=== PATIENT | male | born 1980 | race Caucasian/White ===

== ENCOUNTER 2021-06-29 15:50 | Emergency (ER) | payer BC, SELFPAY ==
[2021-06-29] MEDS ORDERED: MORPHINE 4 MG/ML SYR ONE (16:23)
[2021-06-29] MEDS ORDERED: ONDANSETRON 4 MG/2 ML VIAL ONE (16:23)
--- NOTE | 2021-06-29 16:31 | RAD REPORT ---
EXAM DESCRIPTION: RAD - Tib Fib Right - 06/29/2021 4:15 pm CLINICAL HISTORY: PAIN, blunt force trauma COMPARISON: Foot Right 3 View dated 06/29/2021 FINDINGS: No fracture is identified. There is no dislocation or periosteal reaction noted. No acute or suspicious bony finding. No foreign body or other soft tissue abnormality. IMPRESSION: Negative right tibia & fibula examination.
--- NOTE | 2021-06-29 16:32 | RAD REPORT ---
EXAM DESCRIPTION: RAD - Foot Right 3 View - 06/29/2021 4:15 pm CLINICAL HISTORY: PAIN, blunt force trauma COMPARISON: No comparisons FINDINGS: No fracture, dislocation or periosteal reaction. No acute bone or joint finding. No air or foreign body in the soft tissues. IMPRESSION: Negative right foot examination.
--- NOTE | 2021-06-29 17:39 | ER ---
Nurse's Notes [facility] Name: Maury Meraz III Age: 40 yrs Sex: Male : 1980 Arrival Date: 06/29/2021 Time: 15:52 Bed 8 Private MD: Diagnosis: Contusion of right lower leg;Contusion of right foot Presentation: 06/29 15:53 Chief complaint: EMS states: "pt was cutting down a tree and it fell and came down on jd3 his right lower leg and foot. he was trapped for about 30 min. obvious deformity to lower right leg with pain to right lower leg and right foot.". Coronavirus screen: At this time, the client does not indicate any symptoms associated with coronavirus-19. Ebola Screen: Patient negative for fever greater than or equal to 101.5 degrees Fahrenheit, and additional compatible Ebola Virus Disease symptoms. Initial Sepsis Screen: Does the patient meet any 2 criteria? No. Patient's initial sepsis screen is negative. Does the patient have a suspected source of infection? No. Patient's initial sepsis screen is negative. Risk Assessment: Do you want to hurt yourself or someone else? Patient reports no desire to harm self or others. Onset of symptoms was June 29, 2021. 15:53 Method Of Arrival: EMS: [facility] j 15:53 Acuity: DAVE 3 jd3 15:57 Care prior to arrival: Placed on backboard. Mechanism of Injury: Crush injury from tree jd3 that had unknown weight. Extrication was required. Patient was trapped for approximately 30 minutes. Trauma event details: Injury occurred in the [facility], Injury occurred: at home. Injury occurred: June 29, 2021. Trauma Activation: Alert Physician: ED Physician; Name: MD. Max/ Dougie WHEATLEY; Notified At: 15:59; Arrived At: 15:59 Physician: General Surgeon; Name: ; Notified At: 15:59; Arrived At: Physician: Radiology; Name: x-ray tech, biosolids management technician; Notified At: 15:59; Arrived At: 15:59 Physician: Respiratory; Name: ; Notified At: 15:59; Arrived At: Physician: Danitza; Name: ; Notified At: 15:59; Arrived At: Historical: - Allergies: 15:56 No Known Allergies; jd3 - Home Meds: 15:56 None [Active]; jd3 - PMHx: 15:56 None; jd3 - PSHx: 15:56 None; jd3 - Immunization history:: Adult Immunizations up to date, Last tetanus immunization: < 5 years ago. - Social history:: Smoking status: Patient reports the use of cigarette tobacco products, smokes one pack cigarettes per day. Patient uses street drugs, Methamphetamine (Meth) Patient/guardian denies using alcohol. - Immunization history: Last tetanus immunization: - up to date. < 5 years ago. Screenin:03 Abuse screen: Denies threats or abuse. Tuberculosis screening: No symptoms or risk jd3 factors identified. 16:04 Nutritional screening: No deficits noted. Fall Risk IV access (20 points). Ambulatory jd3 Aid- None/Bed Rest/Nurse Assist (0 pts). Gait- Normal/Bed Rest/Wheelchair (0 pts) Mental Status- Oriented to own ability (0 pts). Total Goff Fall Scale indicates No Risk (0-24 pts). Primary Survey: 15:59 NO uncontrolled hemorrhage observed. A: The patient is alert. Airway: patent, No jd3 supplemental oxygen in use on arrival. Breathing/Chest: Respiratory pattern: regular, Respiratory effort: spontaneous, unlabored, Chest inspection: symmetrical rise and fall of the chest. Circulation: Pulses: palpable right radial artery, right dorsalis pedis artery, left radial artery and left dorsalis pedis artery. Skin color: pink, Skin temperature: warm. Disability Alert. Exposure/Environment: All clothing and personal items were removed. Forensic evidence collection is not deemed to be indicated at this time. Items placed in patient belonging bag. There is no evidence of uncontrolled external bleeding. Obvious injury(ies) are noted at this time: bruising noted to right lower leg and foot A warming method has been applied: A warm blanket has been provided to the patient. 16:49 Reassessment Airway Airway Patent Breathing/Chest Respiratory pattern Regular jd3 Respiratory effort Spontaneous Unlabored Chest inspection Symmetrical Circulation Pulses Palpable Color [place] Temperature Warm Disability Alert. Secondary Survey: 16:02 HEENT: No deficits noted. Gastrointestinal: No deficits noted. : No signs and/or jd3 symptoms were reported regarding the genitourinary system. Musculoskeletal: Circulation, motion, and sensation intact. Range of motion: limited in right knee and right ankle. Assessment: 16:01 General: Appears uncomfortable, Behavior is cooperative, appropriate for age. Pain: jd3 Complains of pain in right foot and right leg Quality of pain is described as sharp, shooting, stabbing. Neuro: Level of Consciousness is awake, alert, obeys commands, Oriented to person, place, time, situation, Denies dizziness, numbness headache photophobia diplopia, denies LOC or hit to head. EENT: No signs and/or symptoms were reported regarding the EENT system. Cardiovascular: Capillary refill < 3 seconds Patient's skin is warm and dry. Respiratory: Airway is patent Respiratory effort is even, unlabored, Respiratory pattern is regular, symmetrical, Denies cough, shortness of breath. GI: No signs and/or symptoms were reported involving the gastrointestinal system. : No signs and/or symptoms were reported regarding the genitourinary system. Derm: Skin is intact, Skin is dry, Skin is normal, Skin temperature is warm Bruising that is on right foot and right smiley. Musculoskeletal: Circulation, motion, and sensation intact. Range of motion: limited in right ankle. 16:51 Reassessment: Patient and/or family updated on plan of care and expected duration. Pain jd3 level reassessed. Patient is alert, oriented x 3, equal unlabored respirations, skin warm/dry/pink. Patient states feeling better. 18:12 Reassessment: Patient appears in no apparent distress at this time. Patient and/or jd3 family updated on plan of care and expected duration. Pain level reassessed. Patient is alert, oriented x 3, equal unlabored respirations, skin warm/dry/pink. Patient states feeling better. Derm: Skin is intact, Skin is dry, Skin is normal, Skin temperature is warm Bruising that is on right foot and right smiley. Musculoskeletal: Circulation, motion, and sensation intact. Range of motion: intact in all extremities. Vital Signs: 15:56 BP 134 / 97; Pulse 87; Resp 19 S; Temp 98.7(O); Pulse Ox 99% on R/A; Weight 68.04 kg jd3 (R); Height 5 ft. 8 in. (172.72 cm) (R); Pain 10/10; 16:51 BP 126 / 92; Pulse 81; Resp 16 S; Pulse Ox 98% on R/A; jd3 18:13 BP 126 / 89; Pulse 77; Resp 16 S; Pulse Ox 100% on R/A; jd3 15:56 Body Mass Index 22.81 (68.04 kg, 172.72 cm) jd3 [place] Coma Score: 16:03 Eye Response: spontaneous(4). Verbal Response: oriented(5). Motor Response: obeys jd3 commands(6). Total: 15. 18:13 Eye Response: spontaneous(4). Verbal Response: oriented(5). Motor Response: obeys jd3 commands(6). Total: 15. Trauma Score (Adult): 16:03 Eye Response: spontaneous(1); Verbal Response: oriented(1); Motor Response: obeys jd3 commands(2); Systolic BP: > 89 mm Hg(4); Respiratory Rate: 10 to 29 per min(4); [place] Score: 15; Trauma Score: 12 18:13 Eye Response: spontaneous(1); Verbal Response: oriented(1); Motor Response: obeys jd3 commands(2); Systolic BP: > 89 mm Hg(4); Respiratory Rate: 10 to 29 per min(4); [place] Score: 15; Trauma Score: 12 ED Course: 15:52 Patient arrived in ED. eb 15:52 Skip Ashraf RN is Primary Nurse. jd3 15:53 Dougie Cramer NP is PHCP. pm1 15:53 Escobar Max MD is Attending Physician. pm1 15:55 Triage completed. jd3 15:57 Arm band placed on. jd3 15:57 Inserted saline lock: 18 gauge in right antecubital area, using aseptic technique. jd3 Blood collected. Patient maintains SpO2 saturation greater than 95% on room air. 16:03 Patient has correct armband on for positive identification. Bed in low position. Call jd3 light in reach. Side rails up X2. 16:04 Thermoregulation: warm blanket given to patient. jd3 16:15 Tib Fib Right XRAY In Process Unspecified. EDMS 16:15 Foot Right 3 View XRAY In Process Unspecified. EDMS 18:12 No provider procedures requiring assistance completed. IV discontinued, intact, jd3 bleeding controlled, No redness/swelling at site. Pressure dressing applied. Administered Medications: 16:04 Drug: morphine 4 mg Route: IVP; Site: left antecubital; jd3 17:00 Follow up: Response: No adverse reaction; RASS: Alert and Calm (0) jd3 16:04 Drug: Zofran (Ondansetron) 4 mg Route: IVP; Site: left antecubital; jd3 17:00 Follow up: Response: No adverse reaction jd3 18:11 Drug: Ketorolac 30 mg Route: IVP; Site: left antecubital; jd3 18:12 Follow up: Response: Medication administered at discharge. jd3 Intake: 18:13 PO: 0ml; Total: 0ml. jd3 Output: 18:13 Urine: 0ml; Total: 0ml. jd3 Outcome: 17:38 Discharge ordered by MD. pm1 18:12 Discharged to home ambulatory, with crutches, with family. jd3 18:12 Condition: stable 18:12 Discharge instructions given to patient, family, Instructed on discharge instructions, follow up and referral plans. medication usage, Demonstrated understanding of instructions, follow-up care, medications, Prescriptions given X 2. 18:14 Patient's length of stay in the Emergency Department was greater than 2 hours. waiting jd3 for results and dispositionPatient's length of stay extended due to 18:14 Patient left the ED. jd3 Signatures: Dispatcher [employer] EDMS Dougie Cramer NP WELT ROUGHER pm1 Skip Ashraf RN RN jd3 Vera Garza Corrections: (The following items were deleted from the chart) 16:51 15:59 Exposure/Environment: All clothing and personal items were removed. Forensic jd3 evidence collection is not deemed to be indicated at this time. Items placed in patient belonging bag. There is no evidence of uncontrolled external bleeding. Obvious injury(ies) are noted at this time: deformity noted to right lower leg. A warming method has been applied: A warm blanket has been provided to the patient. jd3 18:14 18:14 Patient's length of stay was not longer than 2 hours. jd3 jd3 18:14 18:14 Patient's length of stay was not longer than 2 hours. jd3 jd3
--- NOTE | 2021-06-29 17:39 | EDPHYS ---
Physician Documentation [facility] Name: Maury Meraz III Age: 40 yrs Sex: Male : 1980 Arrival Date: 06/29/2021 Time: 15:52 Bed 8 Private MD: ED Physician Escobar Max HPI: 06/29 16:26 This 40 yrs old Male presents to ER via EMS with complaints of Right leg pm1 injury. 16:26 The patient presents with a crush injury, Tree. The complaints affect the right smiley pm1 and dorsum of right foot. Context: The problem was sustained at work, resulted from a crush injury, Large tree, the patient is not able to bear weight, Problem is a result from a previous injury: No. Onset: The symptoms/episode began/occurred just prior to arrival. Modifying factors: The symptoms are alleviated by nothing. the symptoms are aggravated by nothing. Associated signs and symptoms: Pertinent positives: swelling, Pertinent negatives numbness, tingling. Treatment prior to arrival includes: splinting the affected extremity. Severity of symptoms: in the emergency department the symptoms are unchanged. The patient has not experienced similar symptoms in the past. The patient has not recently seen a physician. . Historical: - Allergies: 15:56 No Known Allergies; jd3 - Home Meds: 15:56 None [Active]; jd3 - PMHx: 15:56 None; jd3 - PSHx: 15:56 None; jd3 - Immunization history:: Adult Immunizations up to date, Last tetanus immunization: < 5 years ago. - Social history:: Smoking status: Patient reports the use of cigarette tobacco products, smokes one pack cigarettes per day. Patient uses street drugs, Methamphetamine (Meth) Patient/guardian denies using alcohol. - Immunization history: Last tetanus immunization: - up to date. < 5 years ago. ROS: 16:26 Constitutional: Negative for fever, chills, and weight loss, Cardiovascular: Negative pm1 for chest pain, palpitations, and edema, Respiratory: Negative for shortness of breath, cough, wheezing, and pleuritic chest pain. 16:26 Skin: Negative for injury, rash, and discoloration, Neuro: Negative for headache, weakness, numbness, tingling, and seizure. 16:26 MS/extremity: Positive for pain, swelling, tenderness, of the right smiley and dorsum of right foot. 16:26 All other systems are negative. Exam: 16:26 Constitutional: This is a well developed, well nourished patient who is awake, alert, pm1 and in no acute distress. Head/Face: Normocephalic, atraumatic. 16:26 Skin: Warm, dry with normal turgor. Normal color with no rashes, no lesions, and no evidence of cellulitis. 16:26 Eyes: Pupils equal round and reactive to light, extra-ocular motions intact. Lids and lashes normal. Conjunctiva and sclera are non-icteric and not injected. Cornea within normal limits. Periorbital areas with no swelling, redness, or edema. ENT: Nares patent. No nasal discharge, no septal abnormalities noted. Tympanic membranes are normal and external auditory canals are clear. Oropharynx with no redness, swelling, or masses, exudates, or evidence of obstruction, uvula midline. Mucous membranes moist. Neck: Trachea midline, no thyromegaly or masses palpated, and no cervical lymphadenopathy. Supple, full range of motion without nuchal rigidity, or vertebral point tenderness. No Meningismus. 16:26 Cardiovascular: Exam negative for acute changes, Rate: normal, Rhythm: regular, Pulses: no pulse deficits are appreciated. 16:26 Respiratory: Exam negative for acute changes, respiratory distress, shortness of breath. 16:26 Musculoskeletal/extremity: Extremities: grossly normal except: noted in the right smiley and dorsum of right foot: ecchymosis, swelling, tenderness, Pulses: noted to be 2+ in the right posterior tibial artery and right dorsalis pedis artery, the right foot Sensation intact. 16:26 Neuro: Exam negative for acute changes, Orientation: is normal, Mentation: is normal, Motor: is normal, moves all fours. Vital Signs: 15:56 BP 134 / 97; Pulse 87; Resp 19 S; Temp 98.7(O); Pulse Ox 99% on R/A; Weight 68.04 kg jd3 (R); Height 5 ft. 8 in. (172.72 cm) (R); Pain 10/10; 16:51 BP 126 / 92; Pulse 81; Resp 16 S; Pulse Ox 98% on R/A; jd3 18:13 BP 126 / 89; Pulse 77; Resp 16 S; Pulse Ox 100% on R/A; jd3 15:56 Body Mass Index 22.81 (68.04 kg, 172.72 cm) jd3 [place] Coma Score: 16:03 Eye Response: spontaneous(4). Verbal Response: oriented(5). Motor Response: obeys jd3 commands(6). Total: 15. 18:13 Eye Response: spontaneous(4). Verbal Response: oriented(5). Motor Response: obeys jd3 commands(6). Total: 15. Trauma Score (Adult): 16:03 Eye Response: spontaneous(1); Verbal Response: oriented(1); Motor Response: obeys jd3 commands(2); Systolic BP: > 89 mm Hg(4); Respiratory Rate: 10 to 29 per min(4); [place] Score: 15; Trauma Score: 12 18:13 Eye Response: spontaneous(1); Verbal Response: oriented(1); Motor Response: obeys jd3 commands(2); Systolic BP: > 89 mm Hg(4); Respiratory Rate: 10 to 29 per min(4); Alex Score: 15; Trauma Score: 12 MDM: 15:57 Patient medically screened. pm1 17:37 Data reviewed: vital signs. Data interpreted: Pulse oximetry: on room air is 98 %. pm1 Interpretation: normal. Counseling: I had a detailed discussion with the patient and/or guardian regarding: the historical points, exam findings, and any diagnostic results supporting the discharge/admit diagnosis, radiology results, the need for outpatient follow up, to return to the emergency department if symptoms worsen or persist or if there are any questions or concerns that arise at home. 06/29 15:58 Order name: Tib Fib Right XRAY; Complete Time: 17:00 pm1 06/29 15:58 Order name: Foot Right 3 View XRAY; Complete Time: 17:00 pm1 06/29 16:00 Order name: IV Saline Lock; Complete Time: 16:04 pm1 06/29 17:00 Order name: Ice pack; Complete Time: 17:09 pm1 06/29 17:29 Order name: Crutches; Complete Time: 17:53 pm1 Administered Medications: 16:04 Drug: morphine 4 mg Route: IVP; Site: left antecubital; jd3 17:00 Follow up: Response: No adverse reaction; RASS: Alert and Calm (0) jd3 16:04 Drug: Zofran (Ondansetron) 4 mg Route: IVP; Site: left antecubital; jd3 17:00 Follow up: Response: No adverse reaction jd3 18:11 Drug: Ketorolac 30 mg Route: IVP; Site: left antecubital; jd3 18:12 Follow up: Response: Medication administered at discharge. jd3 Disposition Summary: 06/29/21 17:38 Discharge Ordered Location: Home pm1 Problem: new pm1 Symptoms: have improved pm1 Condition: Stable pm1 Diagnosis - Contusion of right lower leg pm1 - Contusion of right foot pm1 Followup: pm1 - With: Emergency Department - When: As needed - Reason: Worsening of condition Followup: pm1 - With: Private Physician - When: 2 - 3 days - Reason: Recheck today's complaints, Continuance of care, Re-evaluation by your physician Discharge Instructions: - Discharge Summary Sheet pm1 - Contusion pm1 Forms: - Medication Reconciliation Form pm1 - Thank You Letter pm1 - Antibiotic Education pm1 - Prescription Opioid Use pm1 Prescriptions: - Diclofenac Sodium 75 mg Oral tablet,delayed release (DR/EC) - take 1 tablet by ORAL route every 12 hours As needed; 30 tablet; Refills: 0, pm1 Product Selection Permitted - acetaminophen-codeine 300-15 mg Oral tablet - take 1 tablet by ORAL route every 6 hours As needed; 20 tablet; Refills: 0, pm1 Product Selection Permitted Addendum: 07/01/2021 10:06 Co-signature as Attending Physician, Escobar Max MD I agree with the assessment and k dr plan of care. Signatures: Dispatcher [employer] EDGA Escobar Max MD MD kdr Marinas, Patrick, NP CONTRACT ATTORNEY pm1 Skip Ashraf RN RN jd3
[2021-06-29] MEDS ORDERED: KETOROLAC 30 MG/ML INJ ONE (18:19)
[2021-06-29 19:41] VITALS: TEMP 98.7
[2021-06-29 19:43] VITALS: BP 126/89; O2SAT 100
== END 2021-06-29 18:14 | disposition home or self-care (01) ==
LOC: ER 15:50
DX: S80.11XA Contusion of right lower leg, initial encounter (principal); S90.32XA Contusion of left foot, initial encounter; W20.8XXA Other cause of strike by thrown, projected or falling object, initial encounter; F17.210 Nicotine dependence, cigarettes, uncomplicated
CPT/HCPCS: 96374; 96375; 99284; G0390; J2405

== ENCOUNTER 2021-07-11 11:22 | Emergency (ER) | payer SELFPAY ==
[2021-07-11 12:22] LABS: Absolute Lymphocytes (CBC) 1.1 K/uL (0.7-4.9); Basophils % 0.3 % (0-1.3); Hematocrit 43.5 % (39.6-49.0); Lymphocytes % 11.1 % (15.3-44.8); MPV 7.4 fL (7.6-11.3); RBC Red Blood Cell Count 4.96 M/uL (4.33-5.43)
[2021-07-11 12:45] LABS: Potassium 4.3 mmol/L (3.5-5.1)
--- NOTE | 2021-07-11 13:24 | RAD REPORT ---
EXAM DESCRIPTION: RAD - Foot Right 3 View - 07/11/2021 1:13 pm CLINICAL HISTORY: Right foot swelling FINDINGS: No fracture or dislocation is seen No significant bone or joint abnormality noted. Soft tissue swelling
--- NOTE | 2021-07-11 13:43 | RAD REPORT ---
EXAM DESCRIPTION: USExtremity Venous Uni Ltd07/11/2021 1:35 pm CLINICAL HISTORY: Right leg pain and swelling. COMPARISON: None. FINDINGS: Right common femoral, superficial femoral, popliteal and right posterior tibial veins are compressible and demonstrate augmentation. Doppler demonstrates good flow. IMPRESSION: No evidence of deep venous thrombosis involving the right lower extremity.
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
[2021-07-11 15:26] VITALS: TEMP 98.1
[2021-07-11 15:27] VITALS: O2SAT 100
[2021-07-11 15:29] VITALS: BP 140/91
== END 2021-07-11 15:14 | disposition home or self-care (01) ==
LOC: ER 11:22
DX: L03.115 Cellulitis of right lower limb (principal); R60.0 Localized edema; F17.210 Nicotine dependence, cigarettes, uncomplicated
CPT/HCPCS: 36415; 80048; 84145; 85025; 93971; 99283